=== PATIENT | female | born 1965 | race Two or more races ===

== ENCOUNTER 2019-10-28 10:36 | Inpatient (IN) | payer BC, OTHER ==
[~2019-10-28] VITALS: Ht 162.6 cm; Wt 94.4 kg
[2019-10-28] MEDS ORDERED: SODIUM CHLORIDE 0.9% 1,000 ML IVB ONE (10:46)
[2019-10-28] MEDS ORDERED: MORPHINE SULFATE 4 MG/ML SYR/VIAL IV ONE (11:00)
[2019-10-28] MEDS ORDERED: KETOROLAC TROMETH 30 MG/ML 1ML VIAL IV ONE (11:00)
[2019-10-28] MEDS ORDERED: ONDANSETRON HCL 4 MG/2 ML VIAL IV ONE ×2 (11:00→13:15)
[2019-10-28 11:07] LABS: Basophils # (auto) 0 10 ^3/uL (0-0.2); Basophils % (auto) 0.4 % (0.0-2.0); Eosinophils # (auto) 0.1 10 ^3/uL (0-0.8); Eosinophils % (auto) 0.9 % (0.0-7.0); Hematocrit 40.3 % (36.0-46.0); Hemoglobin 13.3 g/dL (12.2-16.2); Lymphocytes # (auto) 1.6 10 ^3/uL (0.4-5.4); Mean Corpuscular Hemoglobin 29.5 pg (28.0-32.0); Mean Corpuscular Volume 89.4 fL (80.0-100.0); Monocytes # (auto) 0.4 10 ^3/uL (0-1.3); Monocytes % (auto) 5.3 % (0.0-12.0); Neutrophils # (auto) 5.6 10 ^3/uL (1.6-8.6); Neutrophils % (auto) 72.4 % (37.0-80.0); Platelet Count (auto) 246 10^3/uL (140-450); Red Blood Cells 4.51 10^6/uL (4.0-5.20); Red Cell Distribution Width 13.6 % (11.8-14.3); White Blood Cell 7.8 10^3/uL (4.4-10.8)
[2019-10-28 11:34] LABS: Albumin 3.7 g/dL (3.4-5.0); Calcium 8.5 mg/dL (8.5-10.1); Potassium 3.8 mmol/L (3.5-5.1)
[2019-10-28 11:36] LABS: BUN/Creatinine Ratio 19.8; Bilirubin, Total 0.4 mg/dL (0.2-1.0); Total Protein 7.5 g/dL (6.4-8.2)
[2019-10-28] MEDS ORDERED: HYDROmorphone HCL 2 MG/ML VL IV ONE (13:15)
[2019-10-28] MEDS ORDERED: MORPHINE SULF INJ 2 MG/ML SYRINGE 1ML IV PRN ×2 (13:45→16:00)
[2019-10-28] MEDS ORDERED: NITROGLYCERIN 0.4 MG SL TAB SL PRN ×2 (13:45→16:00)
[2019-10-28 15:00] VITALS: BP 126/71
[2019-10-28 15:23] LABS: Urine Bacteria FEW /hpf (None Seen); Urine Blood TRACE /uL (Negative); Urine Specific Gravity 1.017 (1.001-1.035); Urine WBC 1 /hpf (0 - 5)
[2019-10-28] MEDS ORDERED: IBUP200C3 PO (15:25)
--- NOTE | 2019-10-28 15:30 | NUR ---
paged Dr. Sykes re: diet
--- NOTE | 2019-10-28 15:37 | NUR ---
Dr. Sykes called back, received order for clear liquid diet and advance as tolerated.
[2019-10-28] MEDS ORDERED: cefTRIAXone 1GM/50ML D5W 50 ML IV ONE (15:45)
[2019-10-28] MEDS ORDERED: MANNITOL FTV 25% 12.5 GM/50 ML 50 ML IV ONE (16:00)
[2019-10-28] MEDS ORDERED: DOCUSATE SOD 100 MG CAP PO PRN (16:00)
[2019-10-28] MEDS ORDERED: HYDROcodone-ACET 5/325MG TAB PO PRN (16:00)
[2019-10-28] MEDS ORDERED: LORazepam 0.5 MG TAB PO PRN (16:00)
[2019-10-28] MEDS: METOCLOPRAMIDE HCL 5MG/ml INJ 2ml VIAL IV PRN (17:27)
[2019-10-28] MEDS: MORPHINE SULF INJ 2 MG/ML SYRINGE 1ML IV PRN (17:33)
--- NOTE | 2019-10-28 19:30 | NUR ---
Opening Shift Note Assumed care of patient, awake and alert. No S/S of distress/SOB or pain. Instructed on POC and to call for assist PRN, will continue to monitor for changes Q1hr and PRN.
[2019-10-28 20:00] VITALS: BP 133/75
[2019-10-28 22:09] VITALS: BP 133/75
[2019-10-29] VITALS (7 sets, daily range): BP systolic 110–139; BP diastolic 64–79
[2019-10-29] MEDS: SODIUM CHLORIDE 0.9% 1,000 ML IV SCH ×2 (02:31→14:50)
[2019-10-29 05:07] LABS: Basophils # (auto) 0 10 ^3/uL (0-0.2); Basophils % (auto) 0.2 % (0.0-2.0); Eosinophils # (auto) 0.1 10 ^3/uL (0-0.8); Eosinophils % (auto) 1.3 % (0.0-7.0); Hematocrit 35.7 % (36.0-46.0); Hemoglobin 12.1 g/dL (12.2-16.2); Lymphocytes # (auto) 1.9 10 ^3/uL (0.4-5.4); Lymphocytes % (auto) 23.5 % (10.0-50.0); Mean Corpuscular Hemoglobin 30.2 pg (28.0-32.0); Mean Corpuscular Hgb Conc. 33.9 g/dL (32.0-36.0); Mean Corpuscular Volume 89.1 fL (80.0-100.0); Monocytes # (auto) 0.6 10 ^3/uL (0-1.3); Monocytes % (auto) 7.2 % (0.0-12.0); Neutrophils # (auto) 5.5 10 ^3/uL (1.6-8.6); Neutrophils % (auto) 67.8 % (37.0-80.0); Nucleated Red Blood Cells % 0.1 %; Platelet Count (auto) 211 10^3/uL (140-450); Red Blood Cells 4.01 10^6/uL (4.0-5.20); Red Cell Distribution Width 13.4 % (11.8-14.3); White Blood Cell 8.1 10^3/uL (4.4-10.8)
[2019-10-29 05:25] LABS: Calcium 7.8 mg/dL (8.5-10.1); Magnesium 2.3 mg/dL (1.6-2.6); Potassium 3.8 mmol/L (3.5-5.1)
[2019-10-29 05:28] LABS: INR 0.99 (0.9-1.15); Partial Thromboplastin Time 24.5 sec (23.64-32.05)
[2019-10-29 05:31] LABS: BUN/Creatinine Ratio 16.9; Bilirubin, Total 0.4 mg/dL (0.2-1.0); Phosphorus 2.5 mg/dL (2.5-4.90); Total Protein 6.5 g/dL (6.4-8.2)
[2019-10-29] MEDS: ENOXAPARIN SOD 40 MG/0.4 ML SYRINGE SC SCH (08:43)
[2019-10-29] MEDS: FAMOTIDINE (10MG/ML) 2ML VL IV SCH ×2 (08:44→21:40)
[2019-10-29] MEDS: TAMSULOSIN HYDROCHLORIDE 0.4 MG CAP PO SCH (08:44)
[2019-10-29] MEDS: cefTRIAXone 1GM/50ML D5W 50 ML IV SCH (08:44)
[2019-10-29] MEDS: MORPHINE SULF INJ 2 MG/ML SYRINGE 1ML IV PRN (10:48)
[2019-10-29] MEDS ORDERED: MULTTAB61 PO (13:09)
[2019-10-29] MEDS ORDERED: BIOT5TAB4 PO (13:10)
[2019-10-29] MEDS ORDERED: IBUP800T24 PO (13:11)
[2019-10-29] MEDS: traMADol HCL 50 MG TAB PO PRN (15:45)
--- NOTE | 2019-10-29 19:30 | NUR ---
Opening Shift Note Assumed care of patient, awake and alert. No S/S of distress/SOB or pain. Instructed on POC and to strain all urine. Instructed to call for assist PRN, patient verbalized understanding, call light within reach, will continue to monitor for changes Q1hr and PRN.
[2019-10-29] MEDS: METOCLOPRAMIDE HCL 5MG/ml INJ 2ml VIAL IV PRN (20:15)
[2019-10-30 05:30] VITALS: BP 135/71
[2019-10-30] MEDS: SODIUM CHLORIDE 0.9% 1,000 ML IV SCH ×2 (06:24→17:43)
--- NOTE | 2019-10-30 06:25 | NUR ---
Patient still did not pass urine stones, instructed patient to continue straining urine, will endorse to romero SEGURA
[2019-10-30] MEDS: FAMOTIDINE (10MG/ML) 2ML VL IV SCH ×2 (08:37→21:27)
[2019-10-30] MEDS: cefTRIAXone 1GM/50ML D5W 50 ML IV SCH (08:37)
[2019-10-30] MEDS: TAMSULOSIN HYDROCHLORIDE 0.4 MG CAP PO SCH (08:37)
[2019-10-30 09:00] VITALS: BP 118/60
[2019-10-30 12:44] VITALS: BP 129/76
[2019-10-30 17:00] VITALS: BP 116/58
[2019-10-30 20:00] VITALS: BP 128/65
--- NOTE | 2019-10-30 20:00 | NUR ---
Opening Shift Note Assumed care of patient, awake and alert. No S/S of distress/ no SOB. Instructed on POC and to call for assist PRN, will continue to monitor for changes Q1hr and PRN. Patient complains of severe pain to left wrist IV site. No redness or swelling noted. New IV inserted to right hand with 22 gauge angiocath after first attempt. IV to left wrist d/c'd with angiocath intact.
[2019-10-30] MEDS: traMADol HCL 50 MG TAB PO PRN (21:27)
--- NOTE | 2019-10-30 21:27 | NUR ---
Patient complains of right flank pain 7/10 on 1-10 pain scale. Medicated with Tramadol 50 Mg.
[2019-10-30 22:00] VITALS: BP 128/65
--- NOTE | 2019-10-30 22:17 | NUR ---
Patient resting comfortably no distress noted.
[2019-10-31 05:00] VITALS: BP 158/53
--- NOTE | 2019-10-31 06:00 | NUR ---
Patient sleeping comfortably. No distress noted.
[2019-10-31] MEDS: SODIUM CHLORIDE 0.9% 1,000 ML IV SCH ×2 (06:46→21:11)
[2019-10-31 09:00] VITALS: BP 139/71
[2019-10-31] MEDS: FAMOTIDINE (10MG/ML) 2ML VL IV SCH ×2 (09:26→21:11)
[2019-10-31] MEDS: TAMSULOSIN HYDROCHLORIDE 0.4 MG CAP PO SCH (09:26)
[2019-10-31] MEDS: cefTRIAXone 1GM/50ML D5W 50 ML IV SCH (09:26)
[2019-10-31 13:00] VITALS: BP 134/71
--- NOTE | 2019-10-31 14:27 | NUR ---
Patient reports she has voided 5 times and still has not passed a stone. Pt reports she has had kidney stones before so she know s how to strain her own urine. Will continue to monitor.
[2019-10-31 17:00] VITALS: BP_SYST 135; BP_SYST 136; BP_DIAS 56; BP_DIAS 65
--- NOTE | 2019-10-31 19:08 | NUR ---
Opening Note Assumed pt care from day shift RN. Pt is a/ox4 with no s/s of distress or SOB. Discussed POC with pt; pt verbalized understanding. Safety measures maintained with call light within reach, bed in lowest position and side rails up. Will continue to monitor.
[2019-10-31] MEDS: KETOROLAC TROMETH 30 MG/ML 1ML VIAL IV PRN (21:37)
[2019-10-31 22:00] VITALS: BP 139/72
[2019-11-01] MEDS: MORPHINE SULF INJ 2 MG/ML SYRINGE 1ML IV PRN ×2 (00:57→21:48)
--- NOTE | 2019-11-01 00:57 | NUR ---
pain pain rate pain 8/10 to right flank pt medicated per md order
--- NOTE | 2019-11-01 01:27 | NUR ---
PAIN REASSESS PT SLEEPY NO SIGN OF SOB ,DISTRESS,OR PAIN BILATERAL CHEST RISE AND FALL
[2019-11-01 05:00] VITALS: BP 143/62
[2019-11-01 05:57] LABS: Calcium 8.4 mg/dL (8.5-10.1); Potassium 3.8 mmol/L (3.5-5.1)
[2019-11-01 06:00] LABS: BUN/Creatinine Ratio 19.1
--- NOTE | 2019-11-01 06:56 | NUR ---
end of shift notes endorse pt care to day shift rn . pt [id number], no s/s of distress or sob and no pain
--- NOTE | 2019-11-01 07:19 | NUR ---
PT RESTING N BED, NO DSTRESS NOTED. PT REPORTS BLOOD IN URINE AND STILL HAS NOT PASSED ANY STONES, WILL NOTIFY MD. PT EDUCATED TO USE CALL LIGHT NEEDED, WILL CONTINUE TO MONITOR.
--- NOTE | 2019-11-01 07:42 | NUR ---
PT VOIDED IN HAT, INSPECTED URINE. URINE IS CLEAR STRAW COLORED AND PINK TINGED, STRAINED URINE, NO STONE.
[2019-11-01 08:00] VITALS: BP 155/74
[2019-11-01] MEDS: TAMSULOSIN HYDROCHLORIDE 0.4 MG CAP PO SCH (08:46)
[2019-11-01] MEDS: cefTRIAXone 1GM/50ML D5W 50 ML IV SCH (08:46)
[2019-11-01] MEDS: FAMOTIDINE (10MG/ML) 2ML VL IV SCH ×2 (08:46→21:47)
[2019-11-01] MEDS: SODIUM CHLORIDE 0.9% 1,000 ML IV SCH ×2 (08:54→22:50)
--- NOTE | 2019-11-01 12:28 | NUR ---
COLLECTION AGENT REPORTS PT HR 55 BPM, REASSESSED HR, HR 64 BPM. PT REPORTS NO DIZZINESS OR DISTRESS AT THIS TIME, WILL CONTINUE TO MONITOR.
[2019-11-01 13:20] VITALS: BP 129/77
--- NOTE | 2019-11-01 15:10 | NUR ---
PAGED DR TEMPLETON TO REPORT PT HAS BLOOD IN HER URINE AND HR WAS IN HIGH 50'S EARLIER. MD MARY MD REPORTS TO NOTIFY DR MUÑOZ. CALLED DR GUZMAN OFFICE AND SHE IS UNAVAILABLE, SPOKE WITH DR ROSE, NOTIFIED DR ROSE OF BLOOD IN URINE. MD MARY MD REPORTS TO SEND PATIENT HOME IF SHE IS NOT IN PAIN AND FOLLOW UP OUTPATIENT. DR WAKEFIELD NOTIFIED.
--- NOTE | 2019-11-01 15:25 | NUR ---
assessment Patient is a 53 year old female who is alert and oriented. Patients cognitive abilities are intact. Prior to admission patient lived home with family and functioned independently. Patient informed me she is able to care for her own ADLs. Per patient she will return home to her prior living arrangements post discharge and family will transport her home. Patient has no insurance. Patient has been assessed by Sandeep Patel of [facility]. Patients m-nae application is pending per Sandeep. I have provided patient with resources for [facility], Dr. Barajas, and [facility] urgent care for follow up visits. I have provided patient with a prescription card from community assistance program. Patient has no post discharge needs identified as of now. I informed patient she has a right to speak to a vp digital marketing social media and crm regarding all care. I informed patient she has a right to participate in any and all discharge planning. Patient does not have a POA and advanced directive. I have offered patient information on POA and advanced directives. I informed the patient the advantages and benefits of having an Advanced Directive. Patient verbalized understanding and agreed to discharge plan. Addendum: 11/01/19 at 1528 by Katherine LANTIGUA Amended: Links added.
[2019-11-01 17:15] VITALS: BP 132/65
--- NOTE | 2019-11-01 19:22 | NUR ---
Opening Shift Note Assumed care of patient, awake, alert and oriented x4, on room air with even and unlabored respirations, no S/S of distress/SOB or pain. Patient able to ambulate independently, bed in lowest locked position, side rails up x2, and call light within reach. Instructed on POC and to call for assist PRN, will continue to monitor for changes Q1hr and PRN.
[2019-11-01] MEDS: KETOROLAC TROMETH 30 MG/ML 1ML VIAL IV PRN (20:19)
[2019-11-01 23:49] VITALS: BP 139/62
[2019-11-02 05:37] VITALS: BP 135/72
[2019-11-02 09:38] VITALS: BP 147/67
[2019-11-02] MEDS: FAMOTIDINE (10MG/ML) 2ML VL IV SCH (09:44)
[2019-11-02] MEDS: TAMSULOSIN HYDROCHLORIDE 0.4 MG CAP PO SCH (09:44)
[2019-11-02] MEDS: cefTRIAXone 1GM/50ML D5W 50 ML IV SCH (09:44)
[2019-11-02] MEDS: ENOXAPARIN SOD 40 MG/0.4 ML SYRINGE SC SCH (10:00)
[2019-11-02] MEDS ORDERED: NAP500T PO (11:02)
[2019-11-02] MEDS ORDERED: TAM04C PO (11:02)
[2019-11-02 13:01] VITALS: BP 141/76
--- NOTE | 2019-11-02 17:01 | NUR ---
Discharge instructions given as ordered. Encourage to follow up with PMD as instructed. All questions and concerns addressed. Patient verbalized understanding. Medication reconciliation form completed and copy given to patient. New prescription for norco given to patient and rest of prescriptions sent electronically. Per patient "theyre ready for car pick up driver now" pt instructed on use, s/e, s/s she verbalized understanding. IV removed with catheter intact, pressure dressing applied. Telemetry unit returned to ICU. Patient refused wheelchair and ambulated to vehicle in no acute distress or sob. Patient ambulated with all personal belongings. No distress noted at time of departure.
== END 2019-11-02 17:01 | disposition home or self-care (01) | DRG 690 ==
LOC: ER 10:36 → EDBD 10:36 → TELE 10:37 → TELE-WESTW 14:35
PROVIDERS: ADMIT Hospitalist; ATTEND Internal Medicine Nephrology
DX: N13.6 Pyonephrosis (principal); E66.9 Obesity, unspecified; K21.9 Gastro-esophageal reflux disease without esophagitis; K57.90 Diverticulosis of intestine, part unspecified, without perforation or abscess without bleeding; K76.0 Fatty (change of) liver, not elsewhere classified; K44.9 Diaphragmatic hernia without obstruction or gangrene; N28.89 Other specified disorders of kidney and ureter; Z88.5 Allergy status to narcotic agent; Z88.8 Allergy status to other drugs, medicaments and biological substances; Z90.710 Acquired absence of both cervix and uterus; Z98.51 Tubal ligation status; Z83.3 Family history of diabetes mellitus; Z80.8 Family history of malignant neoplasm of other organs or systems; Z82.49 Family history of ischemic heart disease and other diseases of the circulatory system; Z80.1 Family history of malignant neoplasm of trachea, bronchus and lung; Z82.5 Family history of asthma and other chronic lower respiratory diseases; Z85.118 Personal history of other malignant neoplasm of bronchus and lung; Z87.442 Personal history of urinary calculi; Z98.82 Breast implant status; Z68.35 Body mass index [BMI] 35.0-35.9, adult
CPT/HCPCS: 36415; 74176; 76705; 80048; 80053; 81001; 83036; 83690; 83735; 84100; 84484; 85025; 85610; 85730; 87040; 87086; 96361; 96374; 96375; G0378; J0696; J1885; J2405; J3490

== ENCOUNTER 2019-11-25 00:05 | Emergency (ER) | payer BC ==
[~2019-11-25] VITALS: Ht 162.6 cm; Wt 85.7 kg
[~2019-11-25 00:05] MED LIST: MULT-1018 PO; TAM04C PO
[2019-11-25 01:36] LABS: Basophils # (auto) 0 10 ^3/uL (0-0.2); Basophils % (auto) 0.4 % (0.0-2.0); Eosinophils # (auto) 0.2 10 ^3/uL (0-0.8); Eosinophils % (auto) 2.3 % (0.0-7.0); Hematocrit 40.1 % (36.0-46.0); Hemoglobin 13.4 g/dL (12.2-16.2); Lymphocytes # (auto) 2.5 10 ^3/uL (0.4-5.4); Lymphocytes % (auto) 35.8 % (10.0-50.0); Mean Corpuscular Hemoglobin 29.9 pg (28.0-32.0); Mean Corpuscular Hgb Conc. 33.3 g/dL (32.0-36.0); Mean Corpuscular Volume 89.8 fL (80.0-100.0); Monocytes # (auto) 0.7 10 ^3/uL (0-1.3); Monocytes % (auto) 9.6 % (0.0-12.0); Neutrophils # (auto) 3.7 10 ^3/uL (1.6-8.6); Neutrophils % (auto) 51.9 % (37.0-80.0); Platelet Count (auto) 273 10^3/uL (140-450); Red Blood Cells 4.47 10^6/uL (4.0-5.20); Red Cell Distribution Width 13.4 % (11.8-14.3); White Blood Cell 7.1 10^3/uL (4.4-10.8)
[2019-11-25 01:52] LABS: Albumin 3.6 g/dL (3.4-5.0); BUN/Creatinine Ratio 27.3; Calcium 8.6 mg/dL (8.5-10.1); Potassium 4.1 mmol/L (3.5-5.1)
[2019-11-25 01:56] LABS: Bilirubin, Total 0.6 mg/dL (0.2-1.0); Total Protein 7.6 g/dL (6.4-8.2)
[2019-11-25 03:40] LABS: Urine Bacteria FEW /hpf (None Seen); Urine Blood 2+ /uL (Negative); Urine Mucus FEW (None Seen); Urine Specific Gravity 1.027 (1.001-1.035); Urine WBC 3 /hpf (0 - 5)
[2019-11-25 06:01] VITALS: BP 111/48
[2019-11-25] MEDS ORDERED: ONDANSETRON HCL 4 MG/2 ML VIAL IV ONE (06:15)
[2019-11-25] MEDS ORDERED: MORPHINE SULFATE 4 MG/ML SYR/VIAL IV ONE (06:15)
[2019-11-25] MEDS ORDERED: SODIUM CHLORIDE 0.9% 1,000 ML IV ONE (06:15)
== END 2019-11-25 09:39 | disposition home or self-care (01) ==
LOC: ER 00:05
DX: N20.0 Calculus of kidney (principal); R11.2 Nausea with vomiting, unspecified; Z98.51 Tubal ligation status; Z90.710 Acquired absence of both cervix and uterus
CPT/HCPCS: 36415; 74176; 80053; 81001; 82150; 83690; 85025; 96361; 96374; 96375; 99284; J2270; J2405; J7030